=== PATIENT | male | born 1975 | race Caucasian/White ===

== ENCOUNTER 2016-11-10 08:09 | Day surgery (SDC) | payer OTHER ==
[2016-10-31 08:07] VITALS: BMI 24.1
[2016-11-10] MEDS ORDERED: Bupivacaine/Epi 0.25%-1:200,000 10 ml PF inj IJ ONE (11:10)
[2016-11-10] MEDS ORDERED: Lidocaine 1% Inj (20ml) ONE (11:10)
[2016-11-10] MEDS ORDERED: Lactated Ringer's 1,000 ML IV ONE ×2 (11:25)
[2016-11-10] MEDS: ceFAZolin IV 1 gm in Dextrose 100 ML IVPB ONE ×2 (11:26→12:10)
[2016-11-10] MEDS ORDERED: Midazolam 2 MG/2 ML VIAL ONE (12:01)
[2016-11-10] MEDS ORDERED: Propofol 10 mg/ml Inj (20 ML) ONE (12:01)
--- NOTE | 2016-11-10 13:00 | PCM.SURG1 ---
Surgeon's Initial Post Op Note - Surgeon's Notes Surgeon: Odalys [employer] Player: [id number] Type of Anesthesia: General LMA Pre-Operative Diagnosis: Forehead lesion, old scar Operative Findings: Forehead lesion, old scar Post-Operative Diagnosis: Forehead lesion, old scar Operation Performed: Scar revision, excision of forehead lesion Specimen/Specimens Removed: Forehead lesion, old scar Estimated Blood Loss: EBL {In ML}: 10 Blood Products Given: N/A Drains Used: No Drains Post-Op Condition: Good Date of Surgery/Procedure: 11/10/16 Time of Surgery/Procedure: 12:20
[2016-11-10] MEDS ORDERED: Oxycodone/Acetaminophen 5/325 mg Tab PO ONE (13:01)
[2016-11-10 14:31] VITALS: RESP 18; O2SAT 100
[2016-11-10 14:33] VITALS: BP 111/67; PULSE 87; TEMP 98.3
--- NOTE | 2016-11-11 00:18 | OP ---
PROCEDURE DATE: 11/10/2016 PREOPERATIVE DIAGNOSIS: Scalp lipoma of approximately 4 x 3 cm in size with a previous scar. POSTOPERATIVE DIAGNOSIS: Scalp lipoma of approximately 4 x 3 cm in size with a previous scar. PROCEDURES DONE: 1. Excision of the scalp lipoma of the forehead 4 x 3 cm in size. 2. Revision of the scar, 4 x 2 cm in size. SURGEON: Jose Morrow MD [employer] TECHNICIAN: Lino Irby, PGY-3 resident. ANESTHESIA: General anesthesia with LMA. ESTIMATED BLOOD LOSS: Around 10 mL. DRAINS: None. PATHOLOGY: The lipoma was sent for pathology. COMPLICATIONS: None. INTRAOPERATIVE FINDINGS: The patient had approximately a 4 x 3 cm lipoma of the forehead area on the scalp, and the patient also had a previously irregular scar on top of the lipoma. INTRAOPERATIVE STEPS: This 40-year-old male who was diagnosed with a scalp lipoma and the patient villanueva d a previous operation at a similar site, and patient was consented for excision as well as cautery. He was then brought to the OR, placed supine on the operating table. After induction of the anesthe vitaly, the scalp lipoma was incised. The scar was revised, and it was sent to the table for the pathol ogy. The wound was irrigated and wound was closed in 2 layers, the subcutaneous with 3-0 Vicryl, ski n with a 4-0 Monocryl and dry sterile dressing was applied. The patient tolerated the procedure well . Count of instruments and gauze was correct. There was no apparent complication. Jose Morrow MD cc: [id number] TT: 11/11/2016 00:17:40 mo
== END 2016-11-10 14:00 | disposition home or self-care (01) ==
LOC: EDBD → C.SDS 08:09
PROVIDERS: ATTEND Surgery Surgical Critical Care
DX: D17.0 Benign lipomatous neoplasm of skin and subcutaneous tissue of head, face and neck (principal); L90.5 Scar conditions and fibrosis of skin
CPT/HCPCS: 11426; 12032; 88305; J0690; J2001; J2250; J2405; J2704; J3010; J7120